=== PATIENT | female | born 1985 | race Caucasian/White ===

== ENCOUNTER 2024-10-19 07:05 | Day surgery (SDC) | payer OTHER ==
[~2024-10-19 07:05] MED LIST: Sodium Chloride 0.9% 10 ML Syringe FLUSH PRN; Sodium Chloride 0.9% 10 ML Syringe FLUSH SCH
[2024-10-19] MEDS: Lactated Ringers 1,000 ML IV SCH (07:20)
[2024-10-19 07:41] LABS: BASOPHILS ABSOLUTE AUTO 0.1 K/mm3 (0.0-0.2); BASOPHILS PERCENT AUTO 1.2 % (0.0-1.0); EOSINOPHILS ABSOLUTE AUTO 0.1 K/mm3 (0.0-0.4); EOSINOPHILS PERCENT AUTO 1.7 % (0.0-6.0); HEMATOCRIT 39.5 % (37.0-47.0); HEMOGLOBIN 13.6 gm/dl (12.0-16.0); IMMATURE GRAN ABSOLUTE AUTO 0.02 K/mm3 (0.00-0.05); IMMATURE GRAN PERCENT AUTO 0.3 % (0.0-0.4); LYMPHOCYTES ABSOLUTE AUTO 2.1 K/mm3 (1.0-4.8); LYMPHOCYTES PERCENT AUTO 34.7 % (24.0-44.0); MEAN CORPUSCULAR HEMOGLOBIN 30.4 pg (28.0-32.0); MEAN CORPUSCULAR HGB CONC 34.4 g/dl (32.0-36.0); MEAN CORPUSCULAR VOLUME 88.2 fl (83.0-99.0); MEAN PLATELET VOLUME 10.1 fl (9.4-12.3); MONOCYTES ABSOLUTE AUTO 0.4 K/mm3 (0.0-0.8); NEUTROPHILS ABSOLUTE AUTO 3.3 K/mm3 (1.8-7.7); NEUTROPHILS PERCENT AUTO 55.1 % (41.0-71.0); PLATELET COUNT,PLT 234 K/mm3 (150-400); RED BLOOD CELL COUNT 4.48 M/mm3 (4.10-5.30)
[2024-10-19 07:59] LABS: ANION GAP 14.2 (5-15); CALCIUM 9.5 mg/dL (8.5-10.1); CREATININE 0.7 mg/dL (0.55-1.02); EST CRCL DRUG DOSING (CG) 86.18 mL/min; POTASSIUM,K 4.2 mEq/L (3.5-5.1)
[2024-10-19] MEDS ORDERED: Acetaminophen 325 MG Tab PO ONE (09:13)
[2024-10-19] MEDS ORDERED: Rocuronium 50 MG/5 ML Vial ONE (10:07)
[2024-10-19] MEDS ORDERED: fentaNYL 250 MCG/5 ML SDV ONE (10:07)
[2024-10-19] MEDS ORDERED: Dexamethasone 4 MG/ML 5 ML MDV ONE (10:07)
[2024-10-19] MEDS ORDERED: Midazolam 1 MG/ML 2 ML SDV ONE (10:07)
[2024-10-19] MEDS ORDERED: Lidocaine 1% 5 ML VIAL ONE (10:07)
[2024-10-19] MEDS ORDERED: Ondansetron 4 MG/2 ML SDV ONE (10:07)
[2024-10-19] MEDS ORDERED: Propofol 200 MG/20 ML SDV ONE ×2 (10:07→14:00)
[2024-10-19] MEDS ORDERED: ceFAZolin 2 GM Vial ONE (10:46)
[2024-10-19] MEDS ORDERED: HYDROmorphone 0.5 MG/0.5 ML Syringe ONE ×2 (11:12→11:59)
[2024-10-19] MEDS ORDERED: Lactated Ringers 1,000 ML ONE (11:12)
[2024-10-19] MEDS ORDERED: fentaNYL 100 MCG/2 ML SDV IVPUSH PRN (11:14)
[2024-10-19] MEDS ORDERED: HYDROmorphone 0.5 MG/0.5 ML Syringe IVPUSH PRN (11:16)
[2024-10-19] MEDS ORDERED: Sugammadex Sodium 200 MG/2 ML VIAL IV ONE (12:17)
[2024-10-19] MEDS ORDERED: Ketorolac 30 MG/ML SDV ONE (12:17)
[2024-10-19] MEDS ORDERED: droPERidol 0.625 MG in Sodium Chloride 0.9% 50 ML IV ONE (13:56)
[2024-10-19] MEDS: Bupivacaine 0.25% 10 ML SDV ONE (14:09)
[2024-10-19] MEDS: EPINEPHrine 1 MG/ML SDV ONE (14:11)
[2024-10-19] MEDS: Bupivacaine 0.5% 30 ML SDV ONE (14:13)
[2024-10-19] MEDS ORDERED: droPERidol 5 MG/2 ML SDV IVPUSH ONE (14:15)
[2024-10-19] MEDS: Metoclopramide 10 MG/2 ML SDV IVPUSH PRN (15:21)
== END 2024-10-19 16:05 | disposition home or self-care (01) ==
LOC: JD.SDS 07:05
PROVIDERS: ATTEND Obstetrics & Gynecology
DX: D27.1 Benign neoplasm of left ovary (principal); D27.0 Benign neoplasm of right ovary; N83.8 Other noninflammatory disorders of ovary, fallopian tube and broad ligament; Z87.891 Personal history of nicotine dependence; Z88.0 Allergy status to penicillin; Z91.048 Other nonmedicinal substance allergy status
CPT/HCPCS: 36415; 58552; 80048; 81025; 85025; 86850; 86870; 86900; 86901; J0171; J0665; J0690; J1100; J1171; J1885; J2250; J2405; J2704; J2765; J3010; J3490; J7120; 00944; 86905